=== PATIENT | female | born 1970 | race Caucasian/White ===

== ENCOUNTER 2017-05-24 20:55 | Emergency (ER) | payer SELFPAY ==
[2017-05-24 21:22] VITALS: RESP 18; O2SAT 99
[2017-05-24] MEDS ORDERED: Sodium Chloride 0.9% 1,000 ML IV ONE (21:48)
[2017-05-24] MEDS ORDERED: Sodium Chloride 0.9% 1,000 ML ONE (21:58)
[2017-05-24 22:09] LABS: BASO # 0.1 K/uL (0.0-0.2); EOS # 0.3 K/uL (0.0-0.7); EOS % 3.8 % (0.0-4.0); HEMATOCRIT 41.6 % (34.0-47.0); LYMPH % 22.3 % (20.0-40.0); MEAN CELL VOLUME 86.9 fL (81.0-99.0); MEAN CORPUSCULAR HEMOGLOBIN 30.2 pg (27.0-31.0); MEAN CORPUSCULAR HGB CONC 34.8 g/dL (33.0-37.0); MEAN PLATELET VOLUME 8.4 fL (7.2-11.7); MONO # 0.5 K/uL (0.0-0.8); MONO % 5.8 % (0.0-10.0); NRBC % 0.1 % (0.0-2.0); RED CELL DISTRIBUTION WIDTH 13.3 % (11.5-14.5); WHITE BLOOD COUNT 9.1 K/uL (4.8-10.8)
[2017-05-24 22:15] LABS: RBC URINE 1 /hpf (0-3); URINE BILIRUBIN NEGATIVE (NEGATIVE); URINE BLOOD NEGATIVE (NEGATIVE); URINE COLOR Straw (YELLOW); URINE GLUCOSE (UA) NORMAL (Normal); URINE KETONE NEGATIVE (NEGATIVE); URINE LEUKOCYTE ESTERASE 1+ Leu/uL (Negative); URINE PROTEIN NEGATIVE (NEGATIVE); URINE UROBILINOGEN NORMAL mg/dL (0.2-1.0); WBC URINE 11 /hpf (0-5)
--- NOTE | 2017-05-24 22:16 | C.PDOC ---
History Of Present Illness 46 year old female with a Hx of cholecystectomy presents to the ER with a complaint of worsening abdominal pain since this morning, associated with nausea and one episode of vomiting. Patient states the pain is worse at the epigastric region and notes she feels like her arms are numb. Denies fever, chills, or diarrhea. Time Seen by Provider: 05/24/17 21:45 Chief Complaint (Nursing): Abdominal Pain History Per: Patient History/Exam Limitations: no limitations Onset/Duration Of Symptoms: Hrs Current Symptoms Are (Timing): Still Present Location Of Pain/Discomfort: Epigastric Radiation Of Pain To:: None Quality Of Discomfort: Unable To Describe Associated Symptoms: Nausea, Vomiting. denies: Fever, Chills, Diarrhea Exacerbating Factors: None Alleviating Factors: None Recent travel outside of the [place]: No Abnormal Vaginal Bleeding: No Past Medical History Reviewed: Historical Data, Nursing Documentation, Vital Signs Vital Signs: Last Vital Signs Temp 97.8 F 05/24/17 23:30 Pulse 72 05/24/17 23:30 Resp 18 05/24/17 23:30 BP 122/82 05/24/17 23:30 Pulse Ox 99 05/24/17 23:41 - Medical History PMH: Gastritis, Kidney Stones Surgical History: Cholecystectomy Family History: States: Unknown Family Hx - Social History Hx Tobacco Use: No Hx Alcohol Use: No Hx Substance Use: No - Immunization History Hx Tetanus Toxoid Vaccination: No Hx Influenza Vaccination: No Hx Pneumococcal Vaccination: No Review Of Systems Constitutional: Negative for: Fever, Chills Cardiovascular: Negative for: Chest Pain, Palpitations Gastrointestinal: Positive for: Nausea, Vomiting, Abdominal Pain. Negative for : Diarrhea Physical Exam - Physical Exam Appears: Non-toxic Skin: Normal Color, Warm, Dry Head: Atraumatic, Normacephalic Oral Mucosa: Moist Chest: Symmetrical, No Tenderness Cardiovascular: Rhythm Regular, No Murmur Respiratory: Normal Breath Sounds, No Rales, No Rhonchi, No Wheezing Gastrointestinal/Abdominal: Soft, Tenderness (Epigastric) Extremity: Normal ROM (x4), No Deformity Neurological/Psych: Oriented x3, Normal Speech, Normal Cognition, Normal Motor, Normal Sensation ED Course And Treatment - Laboratory Results Result Diagrams: 05/24/17 22:01 05/24/17 22:01 ECG: Interpreted By Me, Viewed By Me ECG Rhythm: Sinus Rhythm ECG Interpretation: Normal Rate From EC O2 Sat by Pulse Oximetry: 99 (Room air) Pulse Ox Interpretation: Normal Against Medical Advice - AMA Patient Left Against Medical Advice: The patient declines admission to the hospital and wishes to leave the Emergency Department. This action is against my medical advice. This decision was made with informed refusal. The patient was told that admission to the hospital is necessary. Explanation of the reasons why were discussed. The risks of leaving were explained to the patient and include, but are not limited to, worsening of known or currently unknown conditions, permanent disability and from undiagnosed or untreated conditions. The patient has the capacity to make this informed decision and understands my explanation of the current medical problem and risks of leaving. The patient voluntarily accepts these risks and signed an AMA form documenting our conversation. The patient was given the opportunity to ask questions and reconsider. The patient was encouraged to return to the Emergency Department at any time for further care. Medical Decision Making Medical Decision Making: consider gastritis/pancreatitis/colitis. - labs imaging pending Plan: * EKG * Blood work * Urinalysis * Zofran * Protonix * IV fluids Patient wishes to sign out AMA without CT scan. Disposition - Disposition Referrals: Francisco Adrian MD [Staff Provider] - Disposition: HOME/ ROUTINE Disposition Time: 23:54 Condition: STABLE Additional Instructions: you are leaving without diagnostic imaging. you are able to return at any time with any concern. Prescriptions: Famotidine [Pepcid] 20 mg PO DAILY #20 tab Instructions: Acute Abdominal Pain (ED) Forms: [employer] (Romansh) Print Language: [place] - Clinical Impression Clinical Impression: Abdominal pain - Scribe Statement The provider has reviewed the documentation as recorded by the Scribkaylyn Alvarenga All medical record entries made by the Scribe were at my direction and personally dictated by me. I have reviewed the chart and agree that the record accurately reflects my personal performance of the history, physical exam, medical decision making, and the department course for this patient. I have also personally directed, reviewed, and agree with the discharge instructions and disposition.
[2017-05-24 22:18] LABS: CHLORIDE 103 mmol/L (98-107); SODIUM 141 mmol/L (132-148)
[2017-05-24 22:19] LABS: POTASSIUM 4.1 mmol/L (3.6-5.2)
[2017-05-24 22:20] LABS: GFR AFRICAN-AMERICAN > 60
[2017-05-24 22:21] LABS: ALB/GLOB RATIO 1.4 (1.0-2.1); ALKALINE PHOSPHATASE 57 U/L (38-126); ALT/SGPT 67 U/L (9-52); AST/SGOT 48 U/L (14-36); BILIRUBIN,TOTAL 0.7 mg/dL (0.2-1.3); BLOOD UREA NITROGEN 8 mg/dL (7-17); CALCIUM 9.1 mg/dl (8.6-10.4); CARBON DIOXIDE 26 mmol/L (22-30); GLUCOSE,RANDOM 96 mg/dL (65-105); TOTAL PROTEIN 7.9 g/dL (6.3-8.3)
[2017-05-24] MEDS ORDERED: Iodixanol 320 MG/ML 100 ML BOTTLE IV ONE (23:14)
[2017-05-24 23:53] VITALS: BP 122/82; PULSE 72; TEMP 97.8
--- NOTE | 2017-05-27 13:53 | CARD ---
APPROVED REPORT EKG Measurement Heart [id number] [place] [id number] [id number] <Conclusion> Normal sinus rhythm Normal ECG
== END 2017-05-24 23:53 | disposition left against medical advice (07) ==
LOC: SUPCPDRO 20:55 → C.ER 20:55
DX: R10.13 Epigastric pain (principal)
CPT/HCPCS: 80053; 81001; 83690; 84484; 84703; 85025; 85610; 85730; 96361; 96374; 96375; 99285; C9113; J2405; J7040

== ENCOUNTER 2017-05-31 18:21 | Emergency (ER) | payer SELFPAY ==
[2017-05-31] MEDS ORDERED: Sodium Chloride 0.9% 1,000 ML IV ONE (19:25)
--- NOTE | 2017-05-31 19:43 | C.PDOC ---
History Of Present Illness 46 year old female with a history of cholecystectomy presents to the ER with complaints of abdominal pain associated with nausea, and also reports feeling dizzy with arm pain. She states the pain is worse at the epigastric region radiates to right upper quadrant and to upper back. She feels pain in her arms, mostly on the left side with associated tingling. She states she was seen in ED last week for similar symptoms. Denies fever, headache, chills, chest pain. Time Seen by Provider: 05/31/17 19:05 Chief Complaint (Nursing): Upper Extremity Problem/Injury History Per: Patient History/Exam Limitations: no limitations Current Symptoms Are (Timing): Still Present Location Of Pain/Discomfort: Epigastric Radiation Of Pain To:: Back (upper back ), Other (RUQ ) Quality Of Discomfort: "Pain" Associated Symptoms: Nausea, Other (dizziness and left arm tingling and pain ). denies: Fever, Chills, Vomiting Recent travel outside of the [place]: No Abnormal Vaginal Bleeding: No Past Medical History Reviewed: Historical Data, Nursing Documentation, Vital Signs Vital Signs: Last Vital Signs Temp 98.3 F 05/31/17 18:38 Pulse 79 05/31/17 18:38 Resp 20 05/31/17 18:38 BP 114/78 05/31/17 18:38 Pulse Ox 98 05/31/17 22:37 - Medical History PMH: Gastritis, Kidney Stones Surgical History: Cholecystectomy Family History: States: Unknown Family Hx - Social History Hx Tobacco Use: No Hx Alcohol Use: No Hx Substance Use: No - Immunization History Hx Tetanus Toxoid Vaccination: No Hx Influenza Vaccination: No Hx Pneumococcal Vaccination: No Review Of Systems Constitutional: Negative for: Fever, Chills ENT: Negative for: Ear Pain, Throat Pain Cardiovascular: Negative for: Chest Pain, Palpitations Respiratory: Negative for: Cough, Shortness of Breath Gastrointestinal: Positive for: Nausea, Abdominal Pain. Negative for: Vomiting , Diarrhea Genitourinary: Negative for: Dysuria Musculoskeletal: Positive for: Arm Pain (mostly left sided pain) Skin: Negative for: Rash Neurological: Positive for: Dizziness. Negative for: Weakness, Numbness, Headache Physical Exam - Physical Exam Appears: Non-toxic, No Acute Distress Skin: Warm, Dry Head: Atraumatic, Normacephalic Eye(s): bilateral: Normal Inspection, PERRL, EOMI Nose: Normal Oral Mucosa: Moist Neck: Supple Chest: Symmetrical, No Deformity Cardiovascular: Rhythm Regular, No Murmur Respiratory: Normal Breath Sounds, No Rales, No Rhonchi, No Wheezing Gastrointestinal/Abdominal: Bowel Sounds, Soft, Tenderness (epigastric tenderness ), No Distention, No Guarding, No Rebound Back: Normal Inspection, Paraspinal Tenderness (parathoracic muscle tenderness ) Extremity: Left: Other (normal ROM, reports pain with abduction), Bilateral: Atraumatic, Normal Color And Temperature, Normal ROM Pulses: Left Radial: Normal, Right Radial: Normal Neurological/Psych: Oriented x3, Normal Speech Gait: Steady ED Course And Treatment - Laboratory Results Result Diagrams: 05/31/17 19:42 05/31/17 19:42 Lab Interpretation: No Acute Changes ECG: Interpreted By Me, Viewed By Me ECG Rhythm: Sinus Rhythm ECG Interpretation: No Acute Changes Rate From EC O2 Sat by Pulse Oximetry: 98 (room air ) - CT Scan/US Abdomen and Pelvis CT Other Rad Studies (CT/US): Read By Radiologist (Che Jefferson MD), Radiology Report Reviewed CT/US Interpretation: FINDINGS: Lower thorax: The bilateral lung bases are clear. ABDOMEN: Liver: No acute findings. Gallbladder and bile ducts: The gallbladder is surgically absent. No significant intra- or extrahepatic. biliary ductal dilation. Pancreas: Enhances homogeneously. No ductal dilation. No discrete mass. Spleen: No acute findings. Adrenals: No acute findings. Kidneys and ureters: No acute findings. No hydronephrosis or renal calculi. No discrete solid mass. PELVIS: Bladder: No acute findings. Reproductive: An involuting cyst is identified within the left ovary measuring 21 mm in greatest. dimension. Trace surrounding free fluid is present. Appendix: The air filled appendix is of normal caliber (series 3, image 115; series 601, image 53) . ABDOMEN and PELVIS: Stomach and bowel: No obstruction. No mucosal thickening. Peritoneum: No significant fluid collection. No free air. Lymph nodes: No pathologically enlarged lymph nodes. Vasculature: Unremarkable. Bones: No acute fracture. IMPRESSION: Involuting cyst within the left ovary. Normal appendix. Absent gallbladder Progress Note: Abdomen and pelvis CT, UA, and blood work were ordered. Patient was given Pepcid, Toardol, Reglan, and IV fluids. Medical Decision Making Medical Decision Making: Impression: upper abdominal pain Differential diagnosis includes but not limited to: gastritis, pancreatitis, PUD Plan: * EKG * Labs * CT A/P Progress: EKG reviewed no acute findings or ischemic changes Labs reviewed, no acute changes from prior visit 05/24. Troponin negative 2129 CT pending 2214 Patient begins to complains of epigastric abdominal pain again, no arm pain. Ordered GI cocktail. CT is still pending 2232 CT report reviewed IMPRESSION: Involuting cyst within the left ovary. Normal appendix. Absent gallbladder 2236 Patient reevaluated and reports pain is improving. Discussed results with patient, and copy of labs and CT report was provided. Patient feels comfortable going home and will be discharged. Patient given follow up instructions for clinic and GI and Rx. Instructed to return to ER if symptoms worsen or new symptoms arise. Disposition Counseled Patient/Family Regarding: Studies Performed, Diagnosis, Need For Followup, Rx Given - Disposition Referrals: Clinic,Med Surg [Primary Care Provider] - Disposition: HOME/ ROUTINE Disposition Time: 22:39 Condition: CRITICAL Forms: [employer] (Emirati) - POA Present On Arrival: None - Clinical Impression Clinical Impression: Epigastric abdominal pain, Arm pain - PA / WAX POT TENDER / Resident Statement MD/DO has reviewed & agrees with the documentation as recorded. - Scribe Statement The provider has reviewed the documentation as recorded by the Scribe Paola Clay All medical record entries made by the Gus were at my direction and personally dictated by me. I have reviewed the chart and agree that the record accurately reflects my personal performance of the history, physical exam, medical decision making, and the department course for this patient. I have also personally directed, reviewed, and agree with the discharge instructions and disposition.
[2017-05-31 19:46] LABS: BASO # 0.1 K/uL (0.0-0.2); BASO % 0.9 % (0.0-2.0); EOS # 0.2 K/uL (0.0-0.7); EOS % 2.3 % (0.0-4.0); HEMATOCRIT 39.1 % (34.0-47.0); LYMPH # 2.7 K/uL (1.0-4.3); LYMPH % 29.3 % (20.0-40.0); MEAN CELL VOLUME 86.3 fL (81.0-99.0); MEAN CORPUSCULAR HEMOGLOBIN 29.8 pg (27.0-31.0); MEAN CORPUSCULAR HGB CONC 34.6 g/dL (33.0-37.0); MEAN PLATELET VOLUME 8.1 fL (7.2-11.7); MONO # 0.4 K/uL (0.0-0.8); MONO % 4.7 % (0.0-10.0); RED CELL DISTRIBUTION WIDTH 13.4 % (11.5-14.5); WHITE BLOOD COUNT 9.3 K/uL (4.8-10.8)
[2017-05-31 19:54] LABS: CHLORIDE 106 mmol/L (98-107)
[2017-05-31] MEDS ORDERED: Sodium Chloride 0.9% 1,000 ML ONE (19:54)
[2017-05-31 19:55] LABS: POTASSIUM 3.9 mmol/L (3.6-5.2); SODIUM 138 mmol/L (132-148)
[2017-05-31 19:57] LABS: ALB/GLOB RATIO 1.3 (1.0-2.1); ALKALINE PHOSPHATASE 52 U/L (38-126); AST/SGOT 43 U/L (14-36); BILIRUBIN,TOTAL 0.8 mg/dL (0.2-1.3); BLOOD UREA NITROGEN 9 mg/dL (7-17); CARBON DIOXIDE 20 mmol/L (22-30); GFR AFRICAN-AMERICAN > 60; TOTAL PROTEIN 7.5 g/dL (6.3-8.3)
[2017-05-31 19:58] LABS: ALT/SGPT 66 U/L (9-52); CALCIUM 8.9 mg/dl (8.6-10.4); GLUCOSE,RANDOM 95 mg/dL (65-105)
[2017-05-31 20:32] LABS: RBC URINE 2 /hpf (0-3); URINE BACTERIA RARE (<OCC); URINE BILIRUBIN NEGATIVE (NEGATIVE); URINE BLOOD NEGATIVE (NEGATIVE); URINE COLOR Yellow (YELLOW); URINE GLUCOSE (UA) NORMAL (Normal); URINE KETONE NEGATIVE (NEGATIVE); URINE PROTEIN NEGATIVE (NEGATIVE); URINE UROBILINOGEN NORMAL mg/dL (0.2-1.0); WBC URINE 5 /hpf (0-5)
[2017-05-31 20:33] LABS: URINE LEUKOCYTE ESTERASE TRACE Leu/uL (Negative)
[2017-05-31] MEDS ORDERED: Iohexol 350mg/ml 100 ML ONE (20:50)
[2017-05-31] MEDS ORDERED: Aluminum Hydroxide/Magnesium Hydroxide Susp (30 mL) PO STA (22:15)
[2017-05-31] MEDS ORDERED: Belladonna-Phenobarbital PO STA (22:15)
[2017-05-31] MEDS ORDERED: Aluminum Hydroxide/Magnesium Hydroxide Susp (30 mL) ONE (22:19)
[2017-05-31] MEDS ORDERED: Belladonna-Phenobarbital ONE (22:20)
--- NOTE | 2017-05-31 22:30 | CT ---
EXAM: CT Abdomen and Pelvis With Intravenous Contrast CLINICAL HISTORY: 46 years old, female; Pain; Abdominal pain; Flank; Right lower quadrant (rlq); Additional info: Ruq abd pain TECHNIQUE: Axial computed tomography images of the abdomen and pelvis with intravenous contrast. All CT scans at this facility use one or more dose reduction techniques, viz.: automated exposure control; ma/kV adjustment per patient size (including targeted exams where dose is matched to indication; i.e. head); or iterative reconstruction technique. Coronal and sagittal reformatted images were created and reviewed. CONTRAST: 100 mL of VISIPAQUE administered intravenously. COMPARISON: No relevant prior studies available. FINDINGS: Lower thorax: The bilateral lung bases are clear. ABDOMEN: Liver: No acute findings. Gallbladder and bile ducts: The gallbladder is surgically absent. No significant intra- or extrahepatic biliary ductal dilation. Pancreas: Enhances homogeneously. No ductal dilation. No discrete mass. Spleen: No acute findings. Adrenals: No acute findings. Kidneys and ureters: No acute findings. No hydronephrosis or renal calculi. No discrete solid mass. PELVIS: Bladder: No acute findings. Reproductive: An involuting cyst is identified within the left ovary measuring 21 mm in greatest dimension. Trace surrounding free fluid is present. Appendix: The air filled appendix is of normal caliber (series 3, image 115; series 601, image 53) . ABDOMEN and PELVIS: Stomach and bowel: No obstruction. No mucosal thickening. Peritoneum: No significant fluid collection. No free air. Lymph nodes: No pathologically enlarged lymph nodes. Vasculature: Unremarkable. Bones: No acute fracture. IMPRESSION: Involuting cyst within the left ovary. Normal appendix. Absent gallbladder.
[2017-05-31 22:48] VITALS: BP 121/85; PULSE 78; RESP 18; TEMP 98
[2017-05-31 23:42] VITALS: O2SAT 98
--- NOTE | 2017-06-01 15:08 | CARD ---
APPROVED REPORT EKG Measurement Heart [id number] [place] 136P13 [id number] <Conclusion> Normal sinus rhythm Normal ECG
== END 2017-05-31 22:48 | disposition home or self-care (01) ==
LOC: SUPCPDRO 18:21 → C.ER 18:21
DX: R10.13 Epigastric pain (principal); M79.602 Pain in left arm; Z90.49 Acquired absence of other specified parts of digestive tract
CPT/HCPCS: 74177; 80053; 81001; 83690; 84484; 85025; 93005; 96361; 96374; 96375; 99284; J1885; J2765; J7040; Q9967

== ENCOUNTER 2018-11-06 13:22 | Emergency (ER) | payer OTHER ==
[2018-11-06] MEDS ORDERED: Sodium Chloride 0.9% 1,000 ML IV ONE (14:26)
[2018-11-06 14:27] LABS: BASO # 0.1 K/uL (0.0-0.2); BASO % 1.5 % (0.0-2.0); EOS # 0.3 K/uL (0.0-0.7); HEMOGLOBIN 13.5 g/dL (11.0-16.0); LYMPH # 2.4 K/uL (1.0-4.3); LYMPH % 38.2 % (20.0-40.0); MEAN CORPUSCULAR HEMOGLOBIN 29.9 pg (27.0-31.0); MEAN CORPUSCULAR HGB CONC 33.4 g/dL (33.0-37.0); MEAN PLATELET VOLUME 9.1 fL (7.2-11.7); MONO # 0.3 K/uL (0.0-0.8); MONO % 5.4 % (0.0-10.0); NEUT # 3.2 K/uL (1.8-7.0); NEUT % 50.9 % (50.0-75.0); NRBC % 0.1 % (0.0-2.0); RBC 4.51 Mil/uL (3.80-5.20); WHITE BLOOD COUNT 6.3 K/uL (4.8-10.8)
[2018-11-06 14:29] LABS: MEAN CELL VOLUME 89.5 fL (81.0-99.0)
[2018-11-06 14:32] LABS: URINE BILIRUBIN NEGATIVE (NEGATIVE); URINE BLOOD 3+ (NEGATIVE); URINE CLARITY Hazy (Clear); URINE COLOR Red (YELLOW); URINE GLUCOSE (UA) NORMAL (Normal); URINE LEUKOCYTE ESTERASE TRACE Leu/uL (Negative); URINE PROTEIN 2+ mg/dL (NEGATIVE)
[2018-11-06 14:34] LABS: ALB/GLOB RATIO 1.4 (1.0-2.1); ALBUMIN 4.3 g/dL (3.5-5.0); ALT/SGPT 66 U/L (9-52); AST/SGOT 58 U/L (14-36); BLOOD UREA NITROGEN 8 mg/dL (7-17); CALCIUM 8.9 mg/dl (8.6-10.4); GFR NON-AFRICAN AMERICAN > 60
--- NOTE | 2018-11-06 14:34 | C.PDOC ---
History Of Present Illness 47 year old female presents to ED with complaint of vaginal bleeding that began 2 days ago. Patient states that the bleeding began with her period on Wednesdayand is heavier than normal. Patient states she has been experiencing h eavier periods since May. 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 She reports that testing did not reveal any abnormalities. She states she has 2 irregular periods this month lasting 15 days apart. In addition, patient reports left pelvic pain that radiates through her hip into her buttocks and dizziness. Patient rates the pain as a 9/10 in severity. She was took tylenol 500 mg at 11:30 am. Patient denies fever, chills, weakness, chest pain, vomiting, and diarrhea. Chief Complaint (Nursing): Female Genitourinary History Per: Patient History/Exam Limitations: no limitations Onset/Duration Of Symptoms: Days (2) Current Symptoms Are (Timing): Still Present Pain Scale Rating Of: 9 Quality Of Discomfort: "Pain" Associated Symptoms: denies: Fever, Chills, Nausea, Vomiting : 2 Para: 2 Miscarriage: 0 Past Medical History Reviewed: Historical Data, Nursing Documentation, Vital Signs Vital Signs: Last Vital Signs Temp 98.3 F 11/06/18 13:25 Pulse 74 11/06/18 13:25 Resp 18 11/06/18 13:25 BP 114/74 11/06/18 13:25 Pulse Ox 99 11/06/18 13:25 - Medical History PMH: Gastritis, Kidney Stones Surgical History: Cholecystectomy Family History: States: Unknown Family Hx - Social History Hx Tobacco Use: No Hx Alcohol Use: No Hx Substance Use: No - Immunization History Hx Tetanus Toxoid Vaccination: No Hx Influenza Vaccination: No Hx Pneumococcal Vaccination: No Review Of Systems Constitutional: Negative for: Fever, Chills, Weakness Gastrointestinal: Negative for: Nausea, Vomiting Genitourinary: Positive for: Vaginal Bleeding, Pelvic Pain (left-sided pelivc pain that radiates through the hip and into the buttock) Skin: Negative for: Rash, Lesions Neurological: Positive for: Dizziness. Negative for: Weakness, Numbness, Headache Physical Exam - Physical Exam Appears: Well, Non-toxic, No Acute Distress Skin: Normal Color, Warm, Dry Head: Atraumatic, Normacephalic Neck: Normal ROM, Supple Chest: Symmetrical, No Deformity Cardiovascular: Rhythm Regular, No Murmur Respiratory: No Accessory Muscle Use Gastrointestinal/Abdominal: Soft, No Tenderness Pelvic: Vaginal Bleeding (bright red blood noted on pad), Other (tenderness to palpation on the left side of the pelvis) Extremity: Capillary Refill (<2 seconds) Extremity: Bilateral: Atraumatic, Normal Color And Temperature Pulses: Left Radial: Normal, Right Radial: Normal Neurological/Psych: Oriented x3, Normal Speech, Normal Cognition ED Course And Treatment - Laboratory Results Result Diagrams: 11/06/18 14:12 11/06/18 14:12 O2 Sat by Pulse Oximetry: 99 (RA) - CT Scan/US Pelvic US Other Rad Studies (CT/US): Interpreted By Me, Read By Radiologist CT/US Interpretation: Accession No. : [id number]. Patient Name / ID : TANI ALVA / [id number]. Exam Date : 11/06/2018 15:24:56 ( Approved ). Study Comment : Sex / Age : F / 47Y. Creator : Celestino Bonds MD. Dictator : Ceelstino Bonds MD. Hydroelectric Station Operator Chief : Bicycle Assembler : Celestino Bonds MD. Approver2 : Report Date : 11/06/2018 16:43:03. My Comment : . Date of service: 11/06/2018. HISTORY: left pelvic pain and menorrhagia. COMPARISON: None available. TECHNIQUE: Transabdominal and transvaginal. FINDINGS: UTERUS: Measures 9.0 x 4.9 x 5.7 cm. Fundal intramural fibroid, 1.8 x 1.2 x 1.5 cm. No other mass identified. ENDOMETRIUM: Measures 5 mm in diameter. Unremarkable. CERVIX: No cervical abnormality identified. RIGHT OVARY: Measures 3.0 x 1.9 x 2.8 cm. No solid mass. Normal flow. LEFT OVARY: Measures 3.3 x 2.2 x 2.2 cm. No solid mass. Normal flow. 1.4 cm simple cyst, presumed physiologic. FREE FLUID: No significant free fluid noted. OTHER FINDINGS: None. IMPRESSION: 1.8 cm fundal intramural uterine fibroid. Otherwise unremarkable examination. Medical Decision Making Medical Decision Making: Impression: 47 y/o with vaginal bleeding Plan: EKG and Pelvic US ordered for patient. Labs and UA ordered Patient given Morphine IVP, Reglan IVPB, and IV fluids Sono revealed left ovarian cyst and uterine fibroid D/W patient the results and referred her to [facility] Patient verbalized understanding and is agreement with plan Upon discharge, patient became nauseous IV Zofran given PO challenge tolerated Stable for discharge Disposition Counseled Patient/Family Regarding: Studies Performed, Diagnosis, Need For Followup, Rx Given - Disposition Referrals: [facility] [Outside] [facility] [Outside] Disposition: HOME/ ROUTINE Disposition Time: 17:03 Condition: IMPROVED Additional Instructions: NIDA FREIRE, thank you for letting us take care of you today. Your provider was Jeremiah Jha DO/Casey Ayala PA-C and you were treated for VAGINAL BLEEDING. The emergency medical care you received today was directed at your acute symptoms. If you were prescribed any medication, please fill it and take as directed. It may take several days for your symptoms to resolve. Return to the Emergency Department if your symptoms worsen, do not improve, or if you have any other problems. Please contact your doctor or call one of the physicians/clinics you have been referred to that are listed on the Patient Visit Information form that is included in your discharge packet. Bring any paperwork you were given at discharge with you along with any medications you are taking to your follow up visit. Our treatment cannot replace ongoing medical care by a primary care provider outside of the emergency department. Thank you for allowing the [facility] team to be part of your care today. Prescriptions: Ibuprofen [Motrin] 600 mg PO TID PRN #30 tab PRN Reason: Pain, Moderate (4-7) Ondansetron [Zofran] 4 mg PO Q8H PRN #30 tab PRN Reason: Nausea/Vomiting Instructions: Ovarian Cyst (DC), Uterine Fibroids (DC), Heavy Periods (DC) Forms: [employer] (Kosovan) - Clinical Impression Clinical Impression: Vaginal bleeding, Left ovarian cyst, Uterine fibroid - PA / GEOMETRY TUTOR / Resident Statement MD/DO has reviewed & agrees with the documentation as recorded. (Rossi Page) - Scribe Statement The provider has reviewed the documentation as recorded by the Scribe (Rossi Page) All medical record entries made by the Scribe were at my direction and personally dictated by me. I have reviewed the chart and agree that the record accurately reflects my personal performance of the history, physical exam, medical decision making, and the department course for this patient. I have also personally directed, reviewed, and agree with the discharge instructions and disposition.
[2018-11-06] MEDS ORDERED: Morphine 4 MG/ML VIAL ONE (14:36)
[2018-11-06 14:44] LABS: URINE BACTERIA FEW (<OCC)
--- NOTE | 2018-11-06 16:46 | US ---
Date of service: 11/06/2018 HISTORY: left pelvic pain and menorrhagia COMPARISON: None available. TECHNIQUE: Transabdominal and transvaginal FINDINGS: UTERUS: Measures 9.0 x 4.9 x 5.7 cm. Fundal intramural fibroid, 1.8 x 1.2 x 1.5 cm. No other mass identified. ENDOMETRIUM: Measures 5 mm in diameter. Unremarkable. CERVIX: No cervical abnormality identified. RIGHT OVARY: Measures 3.0 x 1.9 x 2.8 cm. No solid mass. Normal flow. LEFT OVARY: Measures 3.3 x 2.2 x 2.2 cm. No solid mass. Normal flow. 1.4 cm simple cyst, presumed physiologic. FREE FLUID: No significant free fluid noted. OTHER FINDINGS: None. IMPRESSION: 1.8 cm fundal intramural uterine fibroid. Otherwise unremarkable examination.
[2018-11-06 18:20] VITALS: BP 100/62; PULSE 60; RESP 20; TEMP 98.3
[2018-11-06 19:36] VITALS: O2SAT 99
--- NOTE | 2018-11-07 11:30 | CARD ---
APPROVED REPORT Date of service: 11/06/2018 EKG Measurement Heart [id number] [place] [id number] [id number] <Conclusion> Normal sinus rhythm Normal ECG
== END 2018-11-06 18:36 | disposition home or self-care (01) ==
LOC: C.ER 13:22
DX: N83.202 Unspecified ovarian cyst, left side (principal); D25.9 Leiomyoma of uterus, unspecified; N93.9 Abnormal uterine and vaginal bleeding, unspecified
CPT/HCPCS: 76830; 76856; 80053; 81001; 84702; 84703; 85025; 93005; 96361; 96374; 96375; 99285; J2270; J2405; J2765; J7030